=== PATIENT | female | born 1975 | race Caucasian/White ===

== ENCOUNTER 2016-09-21 19:44 | Emergency (ER) | payer BC ==
[~2016-09-21] VITALS: Ht 157.5 cm; Wt 68.0 kg
[~2016-09-21 19:44] MED LIST: ATOR40TA PO; OMEP20TA PO; RANI150T2 PO
[2016-09-21 20:17] LABS: BASO # 0.2 x10^3/uL (0.0-0.2); BASO % 1 % (0-3); EOS % 1 % (0-3); HEMATOCRIT 40.5 % (36.0-47.0); LYMPH # 1.8 x10^3/uL (1.0-4.8); LYMPH % 14 % (24-48); MEAN CORPUSCULAR HEMOGLOBIN 27 pg (25-35); MEAN CORPUSCULAR HGB CONC 32 g/dL (31-37); MEAN CORPUSCULAR VOLUME 83 fL (79-100); MONO % 5 % (0-9); NEUT % 78 % (31-73); PLATELET COUNT 465 x10^3/uL (140-400); RED BLOOD COUNT 4.89 x10^6/uL (3.50-5.40); RED CELL DISTRIBUTION WIDTH 15.8 % (11.5-14.5); WHITE BLOOD COUNT 12.6 x10^3/uL (4.0-11.0)
[2016-09-21 22:07] LABS: CALCIUM 8.7 mg/dL (8.5-10.1); GFR 60.8; POTASSIUM 3.4 mmol/L (3.5-5.1)
[2016-09-21 22:10] LABS: BILIRUBIN,URINE NEGATIVE (NEG); GLUCOSE,URINE NEGATIVE (NEG); NITRITE,URINE NEGATIVE (NEG); PH,URINE 6.5; PROTEIN,URINE >=300 mg/dL (NEG-TRACE)
[2016-09-21 22:15] LABS: BACTERIA,URINE FEW /HPF (0-FEW); RBC,URINE TNTC /HPF (0-2)
[2016-09-21 22:16] LABS: SQUAMOUS EPITHELIAL CELL,UR FEW /LPF
[2016-09-21 22:21] LABS: BARBITURATES NEG (NEG); BENZODIAZEPINES NEG (NEG); CANNABINOIDS NEG (NEG); COCAINE NEG (NEG); ETHANOL, URINE NEG (NEG); METHADONE NEG (NEG); OPIATES NEG (NEG); PHENCYCLIDINE NEG (NEG)
[2016-09-22 00:01] VITALS: BP 128/69
--- NOTE | 2016-09-22 02:45 | ED.ADGEN ---
Past Medical History Past Medical History: No Pertinent History Past Surgical History: Alcohol Use: Occasionally Drug Use: None Adult General Chief Complaint Chief Complaint: DIZZY/LIGHT HEADED HPI HPI Patient is a 40 year old woman, with no past no history, who presents to the emergency department with complaint of dizziness, nausea, and chest pain. Patient states that she was at home when she began feeling slightly nauseous and diaphoretic, felt as though her heart was racing, and then experienced one episode of vomiting. Patient states that she then began experiencing a sharp shooting intermittent pain in her mid chest and left breast region, which would last for a second at a time and then resolved. Patient states that she's had several episodes of "anxiety" over the past ever weeks, which she has been self- medicating with borrowed Xanax. Patient states she does not have a diagnosis of anxiety, and does not know may be causing these symptoms. However, she states that the have been consistent with the report of above, aside from the vomiting and intermittent chest pain. Patient with no chest pain currently. Denies any shortness of breath, denies any lightheadedness or dizziness currently, no headache, no injuries, no fevers or chills, no lower respiratory symptoms, no other abdominal complaints, no symptoms. Denies any drugs alcohol or cigarettes. Review of Systems Review of Systems Constitutional: Denies fever or chills. [] Eyes: Denies change in visual acuity. [] HENT: Denies nasal congestion or sore throat. [] Respiratory: Denies cough or shortness of breath. [] Cardiovascular: Denies chest pain or edema. [] GI: Denies abdominal pain, bloody stools or diarrhea. [] : Denies dysuria. [] Musculoskeletal: Denies back pain or joint pain. [] Integument: Denies rash. [] Neurologic: Denies headache, focal weakness or sensory changes. [] Endocrine: Denies polyuria or polydipsia. [] Lymphatic: Denies swollen glands. [] Psychiatric: Denies depression or anxiety. [] Allergies Allergies Allergies Coded Allergies Type Severity Reaction Last Updated Verified No Known Drug Allergies 08/26/13 No Physical Exam Physical Exam Constitutional: Well developed, well nourished, no acute distress, non-toxic appearance. [] HENT: Normocephalic, atraumatic, bilateral external ears normal, oropharynx moist, no oral exudates, nose normal. [] Eyes: PERRLA, EOMI, conjunctiva normal, no discharge. [] Neck: Normal range of motion, no tenderness, supple, no stridor. [] Cardiovascular:Heart rate regular rhythm, no murmur [] Lungs & Thorax: Bilateral breath sounds clear to auscultation [] Abdomen: Bowel sounds normal, soft, no tenderness, no masses, no pulsatile masses. [] Skin: Warm, dry, no erythema, no rash. [] Back: No tenderness, no CVA tenderness. [] Extremities: No tenderness, no cyanosis, no clubbing, ROM intact, no edema. [] Neurologic: Alert and oriented X 3, normal motor function, normal sensory function, no focal deficits noted. [] Psychologic: Affect normal, judgement normal, mood normal. [] Current Patient Data Vital Signs Vital Signs Date Time Temp Pulse Resp B/P Pulse Ox O2 Delivery O2 Flow Rate FiO2 09/22/16 00:01 83 20 128/69 97 Room Air 09/21/16 20:09 98.0 98.0 Lab Values Laboratory Tests Test 09/21/16 19:50 09/21/16 20:06 09/21/16 21:56 09/21/16 23:04 White Blood Count 12.6x10^3/uL (4.0-11.0) H Red Blood Count 4.89x10^6/uL (3.50-5.40) Hemoglobin 13.0g/dL (12.0-15.5) Hematocrit 40.5% (36.0-47.0) Mean Corpuscular Volume 83fL (79-100) Mean Corpuscular Hemoglobin 27pg (25-35) Mean Corpuscular Hemoglobin Concent 32g/dL (31-37) Red Cell Distribution Width 15.8% (11.5-14.5) H Platelet Count 465x10^3/uL (140-400) H Neutrophils (%) (Auto) 78% (31-73) H Lymphocytes (%) (Auto) 14% (24-48) L Monocytes (%) (Auto) 5% (0-9) Eosinophils (%) (Auto) 1% (0-3) Basophils (%) (Auto) 1% (0-3) Neutrophils # (Auto) 9.9x10^3uL (1.8-7.7) H Lymphocytes # (Auto) 1.8x10^3/uL (1.0-4.8) Monocytes # (Auto) 0.7x10^3/uL (0.0-1.1) Eosinophils # (Auto) 0.2x10^3/uL (0.0-0.7) Basophils # (Auto) 0.2x10^3/uL (0.0-0.2) Sodium Level 142mmol/L (136-145) Potassium Level 3.4mmol/L (3.5-5.1) L Chloride Level 103mmol/L (98-107) Carbon Dioxide Level 26mmol/L (21-32) Anion Gap 13 (6-14) Blood Urea Nitrogen 13mg/dL (7-20) Creatinine 1.0mg/dL (0.6-1.0) Estimated GFR (Cockcroft-Gault) 60.8 Glucose Level 170mg/dL (70-99) H Calcium Level 8.7mg/dL (8.5-10.1) Troponin I Quantitative < 0.017ng/mL (0.000-0.055) ZL-Kdi-[id number]-Type Natriuretic Peptide 31pg/mL (0-124) Lipase 230U/L (73-393) D-Dimer (Michelle) 0.39ug/mlFEU (0.00-0.50) Urine Collection Type Unknown Urine Color Red Urine Clarity Bloody Urine pH 6.5 Urine Specific Hartsel 1.025 Urine Protein >=300mg/dL (NEG-TRACE) Urine Glucose (UA) Negativemg/dL (NEG) Urine Ketones (Stick) Negativemg/dL (NEG) Urine Blood Large (NEG) Urine Nitrite Negative (NEG) Urine Bilirubin Negative (NEG) Urine Urobilinogen Dipstick 1.0mg/dL (0.2 mg/dL) Urine Leukocyte Esterase Small (NEG) Urine RBC Tntc/HPF (0-2) Urine WBC 11-20/HPF (0-4) Urine Squamous Epithelial Cells Few/LPF Urine Bacteria Few/HPF (0-FEW) Urine Mucus Slight/LPF Urine Opiates Screen Neg (NEG) Urine Methadone Screen Neg (NEG) Urine Barbiturates Neg (NEG) Urine Phencyclidine Screen Neg (NEG) Urine Amphetamine/Methamphetamine Neg (NEG) Urine Benzodiazepines Screen Neg (NEG) Urine Cocaine Screen Neg (NEG) Urine Cannabinoids Screen Neg (NEG) Urine Ethyl Alcohol Neg (NEG) POC Troponin I 0.00ng/ml (<0.08) Laboratory Tests 09/21/16 19:50 Laboratory Tests 09/21/16 19:50 EKG EKG EC: Sinus rhythm, heart rate 91 beats/minute, left axis deviation, QTC of 428, NC 132, QRS of 84, patient with moderate baseline artifact noted, contour abnormalities noted in the anterior leads, but no ST elevations or depressions, abnormal ECG, does not meet STEMI criteria. As interpreted by me. EC: Sinus rhythm, heart rate 80 beats/minute, left axis deviation, QTC of 449, NC 146, QRS 84, baseline artifact is significant improved at this time, abnormalities again noted as stated, are unchanged, no STEMI criteria met, as interpreted by me. Radiology/Procedures Radiology/Procedures Chest x-ray: One view: Normal cardiac silhouette, no effusions, no pneumothorax , no effusions, no soft tissue or bony abnormalities identified. As interpreted by me. Course & Med Decision Making Course & Med Decision Making Pertinent Labs and Imaging studies reviewed. (See chart for details) Patient complaining of "rapid heartbeat" with episodes of occasional lightheadedness and some diaphoresis,over the past several weeks, with one episode of of vomiting, followed by left-sided chest pain, is lasting for a second or 2 at a time, described as sharp and shooting that brought her to the ED today. Patient states that she feels very anxious when this occurs, and believes that she is experiencing anxiety attacks, although she cannot list any specific triggers for me when I ask, states she does feel anxious in the emergency department. Has been self-medicating with a friend's Xanax, did discuss the dangers of using another person medication, especially with an unclear diagnosis. Patient received an EKG, which showed left axis deviation, and some contour normality, but no evidence of acute ischemia, troponin was negative, patient's laboratory studies not reveal any acutely concerning findings. Chest x-ray was unremarkable, d-dimer was negative. Patient was PERC negative as well. I did reevaluate the patient after these laboratory studies were obtained, she remains comfortable in the ED, denies any symptoms currently. I did discuss admission to the hospital for additional evaluation with cardiology consultation, versus prompt follow-up with her primary care provider, which she states she can achieve. We discussed that we have not identified a specific cause for her symptoms today, although the evaluation so far has not revealed any acutely concerning findings. Patient declined admission to the hospital, stating that she would rather go home, and will return to the ED if any concerning symptoms recur or new concerning symptoms develop. We discussed in detail what might prompt return to the ED. She states that she will be able to follow-up with her primary care provider promptly. Patient discharged home in stable condition with plan as above. Dragon Disclaimer Dragon Disclaimer This electronic medical record was generated, in whole or in part, using a voice recognition dictation system. Departure Impression: Primary Impression: Chest pain Additional Impression: Palpitations Disposition: 01 HOME, SELF-CARE Condition: IMPROVED Problem Qualifiers Primary Impression: Chest pain Chest pain type: unspecified Qualified Code: R07.9 - Chest pain, unspecified COLLIN ANDREWS DO Sep 22, 2016 02:45
--- NOTE | 2016-09-22 08:39 | RAD ---
Single view chest History:Chest pain for 2 hours, dizziness, nausea An AP view of the chest is submitted. Comparison: 07/31/2009. Findings: There is no significant infiltrate, pleural effusion, or pneumothorax. The pericardial cardiac silhouette is within normal limits in size. The trachea is in the midline. No acute osseous abnormality is identified. Impression: There is no evidence of acute cardiopulmonary disease.
--- NOTE | 2016-09-22 18:46 | EKG ---
[facility] [address] [place] [address] Test Date: 2016-09-21 Test Time: 20:04:34 Pat Name: JERALD GOMEZ Department: Room: Gender: F Economic Forecaster: : 1975 Requested By: COLLIN ANDREWS Order Number: [id number] Reading MD: Marietta Turner Measurements Intervals [place] Rate: 91 P: -2 IN: 132 QRS: -5 QRSD: 84 T: 51 QT: 342 QTc: 428 Interpretive Statements SINUS RHYTHM LEFTWARD AXIS QRS(T) CONTOUR ABNORMALITY CONSIDER ANTEROLATERAL MYOCARDIAL DAMAGE RI6.01 Unconfirmed report No previous ECG available for comparison Electronically Signed On 09-23-2016 18:59:53 GAME ARTIST by Marietta Turner
--- NOTE | 2016-09-22 18:48 | EKG ---
[facility] [address] [place] [address] Test Date: 2016-09-21 Test Time: 22:56:00 Pat Name: JERALD GOMEZ Department: Room: Gender: F Educational Resource Coordinator: : 1975 Requested By: COLLIN ANDREWS Order Number: [id number] Reading MD: Marietta Turner Measurements Intervals [place] Rate: 88 P: 20 SD: 146 QRS: -7 QRSD: 84 T: 26 QT: 368 QTc: 449 Interpretive Statements SINUS RHYTHM LEFTWARD AXIS RI6.01 Unconfirmed report No previous ECG available for comparison Electronically Signed On 09-23-2016 19:02:16 ELECTRONEURODIAGNOSTIC TECHNICIAN by Marietta Turner
== END 2016-09-22 00:01 | disposition home or self-care (01) ==
LOC: ER 19:44
DX: R07.9 Chest pain, unspecified (principal); R00.2 Palpitations; R42 Dizziness and giddiness; R61 Generalized hyperhidrosis
CPT/HCPCS: 36415; 71010; 80048; 81001; 83690; 83880; 84484; 85027; 85379; 87086; 93005; 99285; G0481

== ENCOUNTER 2017-12-07 18:19 | Emergency (ER) | payer BC ==
[2017-12-07] MEDS: HYDROcodone/APAP 5/325MG 1 TAB TABLET PO (19:11)
== END 2017-12-07 20:42 | disposition home or self-care (01) ==
LOC: ER 18:19
DX: S05.12XA Contusion of eyeball and orbital tissues, left eye, initial encounter (principal); S02.2XXA Fracture of nasal bones, initial encounter for closed fracture; Y08.89XA Assault by other specified means, initial encounter; Y93.89 Activity, other specified; Y92.89 Other specified places as the place of occurrence of the external cause; Y99.8 Other external cause status
CPT/HCPCS: 70450; 70486; 72125; 99284